=== PATIENT | male | born 1960 | race Caucasian/White ===

== ENCOUNTER → 2016-09-10 | Outpatient (CLI) | payer OTHER ==
[~2016-09-10] MED LIST: AGM875 PO; ASPEC81 PO; ATOR-22 PO; GLC850 PO; LSN25 PO; MCR5 PO; SINCALIDE INJ 1.9 MCG in SODIUM CHLORIDE 0.9% 100ML 100 ML IV ONE
--- NOTE | 2016-09-10 10:45 | DIAGNOSTIC IMAGING REPORT ---
NUCLEAR MEDICINE HEPATOBILIARY STUDY WITH EJECTION FRACTION ANALYSIS CLINICAL HISTORY: Upper abdominal pain COMPARISON STUDY: No previous studies for comparison. FINDINGS: The patient was injected with 5.5 mCi of technetium 99 M Choletec. Sequential anterior imaging was performed. The gallbladder was first visualized on the 10 minute image. There is normal passage of activity into small bowel. At 1 hour, the patient was administered 1.9 mcg of sincalide utilizing a 30 minute infusion. The gallbladder ejection fraction was abnormal measuring 13%. IMPRESSION: 1. No evidence of cystic duct obstruction 2. Diminished gallbladder ejection fraction of 13% Electronically signed by: Bryan Mckeon M.D. 09/10/2016 10:43 AM Dictated Date/Time: 09/10/2016 10:42 AM
== END | disposition home or self-care (01) ==
LOC: C.NUCL 08:15
PROVIDERS: ATTEND Family Medicine Adult Medicine
DX: R10.10 Upper abdominal pain, unspecified (principal); R93.2 Abnormal findings on diagnostic imaging of liver and biliary tract